=== PATIENT | female | born 1935 | race Asian ===

== ENCOUNTER 2023-02-10 18:59 | Inpatient (IN) | payer MEDICAID, MEDICARE ==
[~2023-02-10] VITALS: Ht 154.9 cm; Wt 51.7 kg
[2023-02-10 19:23] VITALS: BP_SYST 135; PULSE 93; RESP 20; TEMP 98.3; O2SAT 100
[2023-02-10] MEDS ORDERED: ESCI10TA PO (20:01)
[2023-02-10] MEDS ORDERED: CHOL125C6 PO (20:01)
[2023-02-10] MEDS ORDERED: DIVA500T4 PO (20:01)
[2023-02-10] MEDS ORDERED: FURO-150 PO (20:01)
[2023-02-10] MEDS ORDERED: VALS80TA2 PO (20:01)
[2023-02-10] MEDS ORDERED: ROSU5TAB PO (20:01)
[2023-02-10 20:43] LABS: BASOPHILS % (AUTO) 0.7 % (0.0-2.0); EOSINOPHILS # (AUTO) 0.1 K/uL (0.0-0.4); EOSINOPHILS % (AUTO) 1.4 % (0.0-4.0); HEMATOCRIT 31.9 % (36-48); HEMOGLOBIN 10.8 g/dL (12.0-16.0); LYMPHOCYTES # (AUTO) 1.3 K/uL (1.0-5.5); LYMPHOCYTES % (AUTO) 20.2 % (20.5-51.5); MEAN CORPUSCULAR HEMOGLOBIN 31 pg (27-31); MEAN CORPUSCULAR HGB CONC 34 % (32-36); MEAN CORPUSCULAR VOLUME 93 fL (79.0-98.0); MONOCYTES # (AUTO) 0.9 K/uL (0.0-1.0); MONOCYTES % (AUTO) 13.6 % (1.7-9.3); NEUTROPHILS # (AUTO) 4.2 K/uL (1.8-7.7); NEUTROPHILS % (AUTO) 64.1 % (40.0-70.0); PLATELET COUNT (AUTO) 204 K/uL (130-430); RED BLOOD CELL COUNT(AUTO) 3.44 MIL/uL (4.2-6.2); RED CELL DISTRIBUTION WIDTH 15.4 % (9.0-15.0); WHITE BLOOD COUNT (AUTO) 6.6 K/uL (4.8-10.8)
[2023-02-10 20:58] LABS: BILIRUBIN,URINE NEGATIVE (NEGATIVE); BLOOD, URINE NEGATIVE (NEGATIVE); COLOR,URINE YELLOW (YELLOW); GLUCOSE,URINE NEGATIVE (NEGATIVE); KETONES,URINE NEGATIVE (NEGATIVE); LEUKOCYTE ESTERASE ,URINE 1+ (NEGATIVE); NITRITE, URINE NEGATIVE (NEGATIVE); PROTEIN URINE TRACE (NEGATIVE)
[2023-02-10 21:02] LABS: CLARITY/URINE SLIGHTLY HAZY (CLEAR)
[2023-02-10 21:18] LABS: ALANINE AMINOTRANSFERASE 12 U/L (12-78); ALBUMIN 2.3 g/dL (3.4-4.8); ANION GAP 4 (5-15); ASPARTATE AMINOTRANSFERASE 16 U/L (10-37); CALCIUM 8.7 mg/dL (8.4-11.0); CARBON DIOXIDE 29 mmol/L (23-29); CHLORIDE 97 mmol/L (98-107); CREATININE 0.93 mg/dL (0.55-1.30); FREE T4 (FREE THYROXINE) 1.1 ng/dl (0.8-1.5); GLUCOSE 120 mg/dL (74-106); POTASSIUM 4.2 mmol/L (3.5-5.1); SODIUM SERUM 130 mmol/L (136-145); THYROID STIMULATING HORMONE 10.23 uIu/mL (0.36-3.74); TOTAL BILIRUBIN 0.3 mg/dL (0.0-1.0); TOTAL PROTEIN, SERUM 6.9 g/dL (6.4-8.3); UREA NITROGEN, BLOOD 17 mg/dL (8-21)
[2023-02-10 21:28] LABS: BACTERIA,URINE FEW /HPF (None Seen); RBC,URINE 0-3 /HPF (0-3)
[2023-02-10] MEDS ORDERED: cefTRIAXone 1 GM VIAL ONE (21:40)
[2023-02-10] MEDS ORDERED: NACL 0.9% 1,000 ML IV ONE (21:45)
[2023-02-10] MEDS ORDERED: cefTRIAXone 1 GM in D5W 50 ML IV ONE (21:45)
[2023-02-10] MEDS ORDERED: ONDANSETRON HCL 4 MG/2 ML VIAL IVP PRN (22:15)
[2023-02-10] MEDS ORDERED: cloNIDine HCL 0.2 MG TABLET PO PRN (22:15)
[2023-02-10] MEDS ORDERED: LORazepam 2 MG/ML VIAL IVP PRN (22:15)
[2023-02-10] MEDS ORDERED: MUPIROCIN 2% TOPICAL OINTMENT 22 GM NS PRN (22:15)
[2023-02-10] MEDS ORDERED: MAGNESIUM SULFATE 50 ML IV PRN (22:15)
[2023-02-10] MEDS ORDERED: MORPHINE 2 MG/ML INJ. SYRINGE IVP PRN ×2 (22:15)
[2023-02-10] MEDS ORDERED: ACETAMINOPHEN 325 MG TABLET PO PRN (22:15)
[2023-02-10] MEDS ORDERED: ZOLPIDEM TARTRATE 5 MG TABLET PO PRN (22:15)
[2023-02-10] MEDS ORDERED: DOCUSATE SODIUM 100 MG CAPSULE PO PRN (22:15)
[2023-02-10] MEDS: FUROSEMIDE 20 MG TABLET PO SCH (22:55)
[2023-02-10 23:45] VITALS: O2SAT 100
[2023-02-10] MEDS: NACL 0.9% 1,000 ML IV SCH (23:55)
[2023-02-11 00:07] VITALS: BP_SYST 127; PULSE 60; RESP 16; TEMP 98
[2023-02-11 05:22] LABS: BASOPHILS % (AUTO) 0.7 % (0.0-2.0); EOSINOPHILS # (AUTO) 0.2 K/uL (0.0-0.4); EOSINOPHILS % (AUTO) 4.4 % (0.0-4.0); HEMATOCRIT 29.1 % (36-48); LYMPHOCYTES # (AUTO) 1.3 K/uL (1.0-5.5); LYMPHOCYTES % (AUTO) 25.1 % (20.5-51.5); MEAN CORPUSCULAR HEMOGLOBIN 31 pg (27-31); MEAN CORPUSCULAR HGB CONC 34 % (32-36); MEAN CORPUSCULAR VOLUME 92 fL (79.0-98.0); MONOCYTES # (AUTO) 0.7 K/uL (0.0-1.0); NEUTROPHILS % (AUTO) 56.8 % (40.0-70.0); PLATELET COUNT (AUTO) 193 K/uL (130-430); RED BLOOD CELL COUNT(AUTO) 3.18 MIL/uL (4.2-6.2); RED CELL DISTRIBUTION WIDTH 15.2 % (9.0-15.0); WHITE BLOOD COUNT (AUTO) 5.2 K/uL (4.8-10.8)
[2023-02-11 06:19] LABS: ANION GAP 10 (5-15); CALCIUM 8.4 mg/dL (8.4-11.0); CARBON DIOXIDE 23 mmol/L (23-29); CHLORIDE 102 mmol/L (98-107); CREATININE 0.71 mg/dL (0.55-1.30); GLUCOSE 90 mg/dL (74-106); POTASSIUM 3.5 mmol/L (3.5-5.1); SODIUM SERUM 135 mmol/L (136-145); UREA NITROGEN, BLOOD 10 mg/dL (8-21); VALPROIC ACID 103 ug/mL (50-100)
[2023-02-11] MEDS: LEVOTHYROXINE SODIUM 0.025 MG TABLET PO SCH (06:57)
[2023-02-11 07:00] VITALS: BP_SYST 124; PULSE 47; RESP 18; TEMP 97.7; O2SAT 98
[2023-02-11 09:00] VITALS: BP_SYST 124; PULSE 58; RESP 18; TEMP 97.7; O2SAT 98
[2023-02-11] MEDS ORDERED: DIVALPROEX SODIUM 500 MG TAB.SR.24H (DEPAKOTE ER) PO SCH (09:00)
[2023-02-11] MEDS: CITALOPRAM HYDROBROMIDE 20 MG TABLET PO SCH (10:13)
[2023-02-11] MEDS: ATORVASTATIN 20 MG TABLET PO SCH (10:13)
[2023-02-11] MEDS: DIVALPROEX SODIUM 250 MG TAB.SR.24H (DEPAKOTE ER) PO SCH ×2 (10:14→21:49)
[2023-02-11] MEDS: LOSARTAN POTASSIUM 50 MG TABLET (COZAAR) PO SCH (10:14)
[2023-02-11] MEDS: FUROSEMIDE 20 MG TABLET PO SCH (10:14)
[2023-02-11] MEDS: HEPARIN SODIUM,PORCINE 5,000 UNITS/ML VIAL SUBCUT SCH ×2 (10:18→21:52)
[2023-02-11] MEDS: cefTRIAXone 1 GM IVPB PREMIX 50 ML IV SCH (10:35)
[2023-02-11 12:00] VITALS: BP_SYST 105; PULSE 84; RESP 17; TEMP 97; O2SAT 91
[2023-02-11] MEDS: NACL 0.9% 1,000 ML IV SCH (13:15)
[2023-02-11 16:00] VITALS: BP_SYST 116; PULSE 59; RESP 18; TEMP 97.3; O2SAT 92
[2023-02-11 20:00] VITALS: BP_SYST 122; PULSE 72; RESP 18; TEMP 97.9; O2SAT 100
[2023-02-12 00:10] VITALS: BP_SYST 119; PULSE 60; RESP 18; TEMP 96.2; O2SAT 92
[2023-02-12] MEDS: NACL 0.9% 1,000 ML IV SCH ×3 (01:25→19:50)
[2023-02-12 07:01] LABS: BASOPHILS % (AUTO) 0.9 % (0.0-2.0); EOSINOPHILS # (AUTO) 0.2 K/uL (0.0-0.4); EOSINOPHILS % (AUTO) 3.9 % (0.0-4.0); HEMATOCRIT 28.5 % (36-48); HEMOGLOBIN 9.2 g/dL (12.0-16.0); LYMPHOCYTES % (AUTO) 24.9 % (20.5-51.5); MEAN CORPUSCULAR HEMOGLOBIN 30 pg (27-31); MEAN CORPUSCULAR HGB CONC 32 % (32-36); MONOCYTES # (AUTO) 0.6 K/uL (0.0-1.0); MONOCYTES % (AUTO) 14.3 % (1.7-9.3); NEUTROPHILS # (AUTO) 2.3 K/uL (1.8-7.7); PLATELET COUNT (AUTO) 185 K/uL (130-430); RED BLOOD CELL COUNT(AUTO) 3.03 MIL/uL (4.2-6.2); RED CELL DISTRIBUTION WIDTH 15.6 % (9.0-15.0); WHITE BLOOD COUNT (AUTO) 4.2 K/uL (4.8-10.8)
[2023-02-12] MEDS: LEVOTHYROXINE SODIUM 0.025 MG TABLET PO SCH (07:03)
[2023-02-12 07:05] LABS: ANION GAP 7 (5-15); CALCIUM 8.3 mg/dL (8.4-11.0); CARBON DIOXIDE 26 mmol/L (23-29); CHLORIDE 102 mmol/L (98-107); CREATININE 0.77 mg/dL (0.55-1.30); GLUCOSE 80 mg/dL (74-106); POTASSIUM 3.6 mmol/L (3.5-5.1); SODIUM SERUM 135 mmol/L (136-145); UREA NITROGEN, BLOOD 11 mg/dL (8-21)
[2023-02-12 07:11] LABS: MEAN CORPUSCULAR VOLUME 94 fL (79.0-98.0)
[2023-02-12 07:30] VITALS: BP_SYST 122; PULSE 50; RESP 20; TEMP 97.7; O2SAT 99
[2023-02-12] MEDS: CITALOPRAM HYDROBROMIDE 20 MG TABLET PO SCH (09:26)
[2023-02-12] MEDS: LOSARTAN POTASSIUM 50 MG TABLET (COZAAR) PO SCH (09:27)
[2023-02-12] MEDS: FUROSEMIDE 20 MG TABLET PO SCH (09:27)
[2023-02-12] MEDS: ATORVASTATIN 20 MG TABLET PO SCH (09:27)
[2023-02-12] MEDS: DIVALPROEX SODIUM 250 MG TAB.SR.24H (DEPAKOTE ER) PO SCH ×2 (09:28→21:09)
[2023-02-12] MEDS: HEPARIN SODIUM,PORCINE 5,000 UNITS/ML VIAL SUBCUT SCH ×2 (09:33→21:09)
[2023-02-12] MEDS: cefTRIAXone 1 GM IVPB PREMIX 50 ML IV SCH (09:34)
[2023-02-12 11:30] VITALS: BP_SYST 105; PULSE 60; RESP 17; TEMP 98.6; O2SAT 99
[2023-02-12 16:44] VITALS: BP_SYST 130; PULSE 72; RESP 18; TEMP 98.2; O2SAT 98
[2023-02-12 20:06] VITALS: BP_SYST 111; PULSE 68; RESP 18; TEMP 97.1; O2SAT 94
[2023-02-12 20:07] VITALS: O2SAT 94
[2023-02-13] VITALS: BP_SYST 121; PULSE 64; RESP 18; TEMP 96.8; O2SAT 94
[2023-02-13] MEDS: LEVOTHYROXINE SODIUM 0.025 MG TABLET PO SCH (06:11)
[2023-02-13 07:24] LABS: BASOPHILS % (AUTO) 0.7 % (0.0-2.0); EOSINOPHILS # (AUTO) 0.1 K/uL (0.0-0.4); EOSINOPHILS % (AUTO) 1.7 % (0.0-4.0); HEMATOCRIT 27.8 % (36-48); HEMOGLOBIN 9.3 g/dL (12.0-16.0); LYMPHOCYTES # (AUTO) 1.1 K/uL (1.0-5.5); LYMPHOCYTES % (AUTO) 19.3 % (20.5-51.5); MEAN CORPUSCULAR HEMOGLOBIN 31 pg (27-31); MEAN CORPUSCULAR HGB CONC 33 % (32-36); MEAN CORPUSCULAR VOLUME 93 fL (79.0-98.0); MONOCYTES # (AUTO) 0.9 K/uL (0.0-1.0); MONOCYTES % (AUTO) 14.8 % (1.7-9.3); NEUTROPHILS # (AUTO) 3.7 K/uL (1.8-7.7); NEUTROPHILS % (AUTO) 63.5 % (40.0-70.0); PLATELET COUNT (AUTO) 185 K/uL (130-430); RED CELL DISTRIBUTION WIDTH 15.4 % (9.0-15.0)
[2023-02-13 07:28] LABS: ANION GAP 6 (5-15); CALCIUM 8.3 mg/dL (8.4-11.0); CARBON DIOXIDE 27 mmol/L (23-29); CHLORIDE 99 mmol/L (98-107); CREATININE 0.69 mg/dL (0.55-1.30); GLUCOSE 90 mg/dL (74-106); SODIUM SERUM 132 mmol/L (136-145); UREA NITROGEN, BLOOD 7 mg/dL (8-21)
[2023-02-13 07:30] VITALS: BP_SYST 122; PULSE 70; RESP 16; TEMP 96.8; O2SAT 94
[2023-02-13 07:32] LABS: WHITE BLOOD COUNT (AUTO) 5.8 K/uL (4.8-10.8)
[2023-02-13] MEDS: ATORVASTATIN 20 MG TABLET PO SCH (08:51)
[2023-02-13] MEDS: LOSARTAN POTASSIUM 50 MG TABLET (COZAAR) PO SCH (08:51)
[2023-02-13] MEDS: CITALOPRAM HYDROBROMIDE 20 MG TABLET PO SCH (08:51)
[2023-02-13] MEDS: DIVALPROEX SODIUM 250 MG TAB.SR.24H (DEPAKOTE ER) PO SCH ×2 (08:51→20:55)
[2023-02-13] MEDS: FUROSEMIDE 20 MG TABLET PO SCH (08:53)
[2023-02-13] MEDS: cefTRIAXone 1 GM IVPB PREMIX 50 ML IV SCH (08:53)
[2023-02-13] MEDS: HEPARIN SODIUM,PORCINE 5,000 UNITS/ML VIAL SUBCUT SCH ×2 (08:58→20:56)
[2023-02-13 11:34] VITALS: BP_SYST 109; PULSE 99; RESP 20; TEMP 97.7; O2SAT 95
[2023-02-13] MEDS: NACL 0.9% 1,000 ML IV SCH (15:56)
[2023-02-13 16:04] VITALS: BP_SYST 127; PULSE 87; RESP 19; TEMP 98; O2SAT 99
[2023-02-13 19:59] VITALS: BP_SYST 112; PULSE 74; RESP 18; TEMP 97.6; O2SAT 92
[2023-02-13 20:00] VITALS: O2SAT 92
[2023-02-14] VITALS (7 sets, daily range): BP systolic 108–133; PULSE 56–73; RESP 16–20; TEMP 96.8–99.2; O2SAT 95–99
[2023-02-14] MEDS: NACL 0.9% 1,000 ML IV SCH ×2 (01:02→19:00)
[2023-02-14 05:14] LABS: BASOPHILS # (AUTO) 0.1 K/uL (0.0-0.2); BASOPHILS % (AUTO) 1.2 % (0.0-2.0); EOSINOPHILS # (AUTO) 0.2 K/uL (0.0-0.4); EOSINOPHILS % (AUTO) 3.7 % (0.0-4.0); HEMATOCRIT 28.1 % (36-48); HEMOGLOBIN 9.4 g/dL (12.0-16.0); LYMPHOCYTES # (AUTO) 1.3 K/uL (1.0-5.5); LYMPHOCYTES % (AUTO) 28.7 % (20.5-51.5); MEAN CORPUSCULAR HEMOGLOBIN 31 pg (27-31); MEAN CORPUSCULAR HGB CONC 34 % (32-36); MEAN CORPUSCULAR VOLUME 93 fL (79.0-98.0); MONOCYTES # (AUTO) 0.6 K/uL (0.0-1.0); MONOCYTES % (AUTO) 13.4 % (1.7-9.3); NEUTROPHILS # (AUTO) 2.4 K/uL (1.8-7.7); PLATELET COUNT (AUTO) 188 K/uL (130-430); RED BLOOD CELL COUNT(AUTO) 3.03 MIL/uL (4.2-6.2); RED CELL DISTRIBUTION WIDTH 15.8 % (9.0-15.0); WHITE BLOOD COUNT (AUTO) 4.4 K/uL (4.8-10.8)
[2023-02-14 05:29] LABS: ANION GAP 6 (5-15); CALCIUM 8.5 mg/dL (8.4-11.0); CARBON DIOXIDE 28 mmol/L (23-29); CHLORIDE 100 mmol/L (98-107); CREATININE 0.71 mg/dL (0.55-1.30); GLUCOSE 81 mg/dL (74-106); SODIUM SERUM 134 mmol/L (136-145); UREA NITROGEN, BLOOD 7 mg/dL (8-21)
[2023-02-14 05:35] LABS: POTASSIUM 2.9 mmol/L (3.5-5.1)
[2023-02-14] MEDS: POTASSIUM CHLORIDE 20 MEQ TAB.PRT.SR PO PRN ×2 (05:38→09:39)
[2023-02-14] MEDS ORDERED: KCL 20 mEq in 100 mL (PREMIX) 200 ML IV ONE (05:58)
[2023-02-14] MEDS ORDERED: KCL 20 mEq in 100 mL (PREMIX) 100 ML IV ONE (06:00)
[2023-02-14] MEDS: LEVOTHYROXINE SODIUM 0.025 MG TABLET PO SCH (06:32)
[2023-02-14] MEDS ORDERED: DIVA250T PO (08:43)
[2023-02-14] MEDS: HEPARIN SODIUM,PORCINE 5,000 UNITS/ML VIAL SUBCUT SCH ×2 (09:40→21:07)
[2023-02-14] MEDS: LOSARTAN POTASSIUM 50 MG TABLET (COZAAR) PO SCH (09:41)
[2023-02-14] MEDS: ATORVASTATIN 20 MG TABLET PO SCH (09:42)
[2023-02-14] MEDS: FUROSEMIDE 20 MG TABLET PO SCH (09:42)
[2023-02-14] MEDS: cefTRIAXone 1 GM IVPB PREMIX 50 ML IV SCH (09:43)
[2023-02-14] MEDS: CITALOPRAM HYDROBROMIDE 20 MG TABLET PO SCH (09:46)
[2023-02-14] MEDS: DIVALPROEX SODIUM 250 MG TAB.SR.24H (DEPAKOTE ER) PO SCH ×2 (09:46→21:05)
[2023-02-14] MEDS ORDERED: POTASSIUM CHLORIDE 20 MEQ TAB.PRT.SR PO ONE (18:00)
[2023-02-15 00:46] VITALS: BP_SYST 118; PULSE 68; RESP 20; TEMP 98.4; O2SAT 97
[2023-02-15] MEDS: NACL 0.9% 1,000 ML IV SCH (03:05)
[2023-02-15 04:00] VITALS: BP_SYST 116; PULSE 56; RESP 18; TEMP 98.3; O2SAT 97
[2023-02-15 04:58] LABS: BASOPHILS # (AUTO) 0.1 K/uL (0.0-0.2); BASOPHILS % (AUTO) 0.6 % (0.0-2.0); EOSINOPHILS # (AUTO) 0.1 K/uL (0.0-0.4); EOSINOPHILS % (AUTO) 0.6 % (0.0-4.0); HEMOGLOBIN 9.6 g/dL (12.0-16.0); LYMPHOCYTES # (AUTO) 1.7 K/uL (1.0-5.5); LYMPHOCYTES % (AUTO) 17.9 % (20.5-51.5); MEAN CORPUSCULAR HEMOGLOBIN 31 pg (27-31); MEAN CORPUSCULAR HGB CONC 33 % (32-36); MEAN CORPUSCULAR VOLUME 92 fL (79.0-98.0); MONOCYTES # (AUTO) 1.6 K/uL (0.0-1.0); MONOCYTES % (AUTO) 17.7 % (1.7-9.3); NEUTROPHILS # (AUTO) 5.8 K/uL (1.8-7.7); NEUTROPHILS % (AUTO) 63.2 % (40.0-70.0); PLATELET COUNT (AUTO) 216 K/uL (130-430); RED BLOOD CELL COUNT(AUTO) 3.14 MIL/uL (4.2-6.2); RED CELL DISTRIBUTION WIDTH 15.5 % (9.0-15.0); WHITE BLOOD COUNT (AUTO) 9.2 K/uL (4.8-10.8)
[2023-02-15 05:07] LABS: ANION GAP 6 (5-15); CALCIUM 8.8 mg/dL (8.4-11.0); CARBON DIOXIDE 29 mmol/L (23-29); CHLORIDE 98 mmol/L (98-107); CREATININE 0.87 mg/dL (0.55-1.30); GLUCOSE 103 mg/dL (74-106); POTASSIUM 3.5 mmol/L (3.5-5.1); SODIUM SERUM 133 mmol/L (136-145); UREA NITROGEN, BLOOD 20 mg/dL (8-21)
[2023-02-15] MEDS: LEVOTHYROXINE SODIUM 0.025 MG TABLET PO SCH (06:31)
[2023-02-15 07:46] VITALS: BP_SYST 132; PULSE 67; RESP 17; TEMP 98; O2SAT 100
[2023-02-15 08:00] VITALS: O2SAT 96
[2023-02-15] MEDS: HEPARIN SODIUM,PORCINE 5,000 UNITS/ML VIAL SUBCUT SCH (09:00)
[2023-02-15] MEDS: DIVALPROEX SODIUM 250 MG TAB.SR.24H (DEPAKOTE ER) PO SCH (09:00)
[2023-02-15] MEDS: cefTRIAXone 1 GM IVPB PREMIX 50 ML IV SCH (09:52)
[2023-02-15] MEDS: ATORVASTATIN 20 MG TABLET PO SCH (09:53)
[2023-02-15] MEDS: FUROSEMIDE 20 MG TABLET PO SCH (09:53)
[2023-02-15] MEDS: LOSARTAN POTASSIUM 50 MG TABLET (COZAAR) PO SCH (09:54)
[2023-02-15] MEDS: CITALOPRAM HYDROBROMIDE 20 MG TABLET PO SCH (09:54)
[2023-02-15 15:49] VITALS: BP_SYST 105; PULSE 88; RESP 12; TEMP 98.4
== END 2023-02-15 17:15 | disposition home health service (06) | DRG 426 ==
LOC: SED 18:59 → SMU 22:00
PROVIDERS: ADMIT General Practice; ATTEND General Practice
DX: E87.1 Hypo-osmolality and hyponatremia (principal); G93.41 Metabolic encephalopathy; E44.0 Moderate protein-calorie malnutrition; N39.0 Urinary tract infection, site not specified; E78.5 Hyperlipidemia, unspecified; F03.90 Unspecified dementia, unspecified severity, without behavioral disturbance, psychotic disturbance, mood disturbance, and anxiety; E03.9 Hypothyroidism, unspecified; I10 Essential (primary) hypertension; F32.A Depression, unspecified; G40.909 Epilepsy, unspecified, not intractable, without status epilepticus; F41.9 Anxiety disorder, unspecified; Z86.73 Personal history of transient ischemic attack (TIA), and cerebral infarction without residual deficits; Z68.21 Body mass index [BMI] 21.0-21.9, adult
CPT/HCPCS: 36415; 70450-TC; 71045; 76376; 80048; 80053; 80164; 81000; 82962; 83037; 83605; 83735; 84132; 84439; 84443; 84484; 85025; 87040; 87081; 87086; 93005; 97110-GP; 97530-GP; 99285; J0696; J1644; J3480